=== PATIENT | male | born 1995 | race Caucasian/White ===

== ENCOUNTER 2017-11-24 16:43 | Emergency (ER) | payer SELFPAY ==
[2017-11-24] MEDS ORDERED: NACL 0.9% 1000 ML 1,000 ML IV ONE (16:47)
[2017-11-24] MEDS ORDERED: BOOSTRIX IM ONE (16:47)
[2017-11-24] MEDS ORDERED: ANCEF/NS 1 GM/50 ML 1 GM/50 ML BAG IV ONE (16:47)
[2017-11-24] MEDS ORDERED: MORPHINE IV ONE (16:48)
[2017-11-24 17:07] LABS: Hematocrit 50.6 % (35.5-45.6); Hemoglobin 17.1 gm/dl (11.8-15.2); Mean Corpuscular HGB Conc 34 % (32-34); Mean Corpuscular Hemoglobin 30 pg (28-32); Mean Corpuscular Volume 87 fl (84-94); Platelet Count 252 K/mm3 (140-440); Red Cell Distribution Width 13.9 % (13.2-15.2)
[2017-11-24 17:41] LABS: BUN/Creatinine Ratio 13; Blood Urea Nitrogen 9 mg/dL (9-20); Calcium 9.8 mg/dL (8.4-10.2); Hemolysis Index 79
[2017-11-24 17:51] LABS: Basophils % (Manual) 0 % (0.0-1.8); Eosinophils % (Manual) 0 % (0.0-4.3); RBC Morphology Normal; Total Cells Counted 100
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
[2017-11-24 21:23] VITALS: BP 157/90
== END 2017-11-24 21:21 | disposition home or self-care (01) ==
LOC: ED 16:43
DX: S91.302A Unspecified open wound, left foot, initial encounter (principal); F17.200 Nicotine dependence, unspecified, uncomplicated; W32.0XXA Accidental handgun discharge, initial encounter; Y93.89 Activity, other specified; Y92.89 Other specified places as the place of occurrence of the external cause; Y99.8 Other external cause status
CPT/HCPCS: 29515; 36415; 73590; 73630; 80048; 82550; 85007; 85025; 90471; 90715; 96365; 96375; 99284; J0690; J2270; J7030